=== PATIENT | female | born 1990 | race American Indian/Alaskan Native ===

== ENCOUNTER 2021-02-04 13:01 | Emergency (ER) | payer MEDICAID ==
--- NOTE | 2021-02-04 13:16 | Event Note ---
ED Screening Note Date of service: 02/04/21 Time: 13:14 ED Screening Note: 30 year old female patient (; LMP 01/22/21) presents to the emergency department with complaints of lower abdominal pain and vaginal bleeding starting yesterday. Patient describes the pain in her abdomen as "crampy," localized to the right lower quadrant. Patient describes the bleeding as "spotting." She has bled through less than 1 pad/tampon in the last 24 hours. 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 General: Awake, appropriately interactive, no acute distress. Neck: Supple. Full range of motion intact. Cardiovascular: Normal peripheral perfusion. Pulmonary: No respiratory distress. Patient is speaking normally without use of accessory muscles. Skin: No apparent rashes or lesions. Neurological: No facial asymmetry. Speech is clear. Follows commands. Patient is alert and oriented. Musculoskeletal: Moves all four extremities spontaneously with normal range of motion. Psych: Cooperative. Appropriate mood and affect. Labs and urinalysis ordered; decision to obtain imaging deferred to additional ED providers following full history and comprehensive physical assessment. I have greeted and performed a focused rapid initial assessment of this patient. A comprehensive ED assessment and evaluation of the patient, analysis of all test results, and completion of the medical decision-making process will be conducted by additional ED providers. This initial assessment/diagnostic orders/clinical plan/treatment(s) is/are subject to change based on patients health status, clinical progression and re-assessment. Further treatment and workup at subsequent clinical provider's discretion. Patient/guardian urged not to elope from the ED as their condition may be serious if not clinically assessed and managed.
[2021-02-04 13:41] LABS: Bacteria,Urine 1+ /HPF (Negative); Bilirubin,Urine NEG (Negative); Blood,Urine MOD (Negative); Color,Urine Yellow (Yellow); Mucus,Urine FEW /HPF; Protein,Urine <15 mg/dL mg/dL (Negative); Urobilinogen,Urine < 2.0 mg/dL (<2.0)
[2021-02-04] MEDS ORDERED: SODIUM CHLORIDE 0.9% 1000 ML 1,000 ML IV ONE (14:48)
[2021-02-04 15:11] LABS: Basophils % (Auto) 0.5 % (0.0-1.8); Eosinophils % (Auto) 1.1 % (0.0-4.3); Hematocrit 36.4 % (30.3-42.9); Hemoglobin 12.3 gm/dl (10.1-14.3); Lymphocytes # (Auto) 1.5 K/mm3 (1.2-5.4); Mean Corpuscular HGB Conc 34 % (30-34); Mean Corpuscular Volume 100 fl (79-97); Monocytes # (Auto) 0.3 K/mm3 (0.0-0.8); Monocytes % (Auto) 7.7 % (0.0-7.3); Platelet Count 298 K/mm3 (140-440); Red Blood Count 3.66 M/mm3 (3.65-5.03); Red Cell Distribution Width 12.2 % (13.2-15.2)
[2021-02-04 15:23] LABS: Blood Urea Nitrogen 15 mg/dL (7-17); Calcium 10.1 mg/dL (8.4-10.2); Hemolysis Index 6
[2021-02-04 15:32] LABS: BUN/Creatinine Ratio 21
--- NOTE | 2021-02-04 15:34 | Emergency Department Report ---
ED Female HPI - General Chief complaint: Vaginal Bleeding Stated complaint: , VAGINAL BLEEDING, CRAMPING Time Seen by Provider: 02/04/21 14:53 Source: patient Mode of arrival: Ambulatory Limitations: No Limitations - History of Present Illness Initial comments: Patient is a pleasant 30-year-old female that comes to the emergency room complaining of vaginal bleeding during . Her last menstrual was 6 8. She states that she did a test that was positive at home. This was a #4 and she has 1 living child. She states that she has had 2 other incidents where she had positive test but then they could ne tang find anything in the uterus and the hormone fell. Patient denies any dysuria or vaginal discharge. She denies any abdominal pain or back pain. Patient is ambulatory nontoxic and [id number] in the ER. - Related Data Previous Rx's Medication Instructions Recorded Last Taken Type cephALEXin [Keflex] 500 mg PO Q12HR #20 cap 02/04/21 Unknown Rx Allergies Allergy/AdvReac Type Severity Reaction Status Date / Time No Known Allergies Allergy Unverified 02/04/21 15:16 ED Review of Systems ROS: Stated complaint: , VAGINAL BLEEDING, CRAMPING Other details as noted in HPI Comment: All other systems reviewed and negative ED Past Medical Hx - Past Medical History Previous Medical History?: No - Surgical History Past Surgical History?: Yes Additional Surgical History: C SECTION - Family History Family history: no significant - Social History Smoking Status: Never Smoker Substance Use Type: None - Medications Home Medications: Home Medications Medication Instructions Recorded Confirmed Last Taken Type cephALEXin [Keflex] 500 mg PO Q12HR #20 cap 02/04/21 Unknown Rx ED Physical Exam - General Limitations: No Limitations General appearance: alert, in no apparent distress - Head Head exam: Present: atraumatic, normocephalic - Eye Eye exam: Present: normal appearance - ENT ENT exam: Present: mucous membranes moist - Neck Neck exam: Present: normal inspection - Respiratory Respiratory exam: Present: normal lung sounds bilaterally. Absent: respiratory distress - Cardiovascular Cardiovascular Exam: Present: regular rate, normal rhythm. Absent: systolic murmur, diastolic murmur, rubs, gallop - GI/Abdominal GI/Abdominal exam: Present: soft, normal bowel sounds - Extremities Exam Extremities exam: Present: normal inspection - Back Exam Back exam: Present: normal inspection - Neurological Exam Neurological exam: Present: alert, oriented X3 - Psychiatric Psychiatric exam: Present: normal affect, normal mood - Skin Skin exam: Present: warm, dry, intact, normal color. Absent: rash ED Course Vital Signs 02/04/21 02/04/21 13:10 15:13 Temperature 98.5 F Pulse Rate 77 Respiratory 20 Rate Blood Pressure 145/101 O2 Sat by Pulse 98 98 Oximetry ED Medical Decision Making - Lab Data Result diagrams: 02/04/21 14:46 02/04/21 14:49 - Radiology Data Radiology results: report reviewed, image reviewed See report - Medical Decision Making Lab Results 02/04/21 02/04/21 02/04/21 Range/Units 14:46 14:46 14:49 WBC 4.5 (4.5-11.0) K/mm3 RBC 3.66 (3.65-5.03) M/mm3 Hgb 12.3 (10.1-14.3) gm/dl Hct 36.4 (30.3-42.9) % MCV 100 H (79-97) fl MCH 34 H (28-32) pg MCHC 34 (30-34) % RDW 12.2 L (13.2-15.2) % Plt Count 298 (140-440) K/mm3 Lymph % (Auto) 33.0 (13.4-35.0) % [place] % (Auto) 7.7 H (0.0-7.3) % Eos % (Auto) 1.1 (0.0-4.3) % Baso % (Auto) 0.5 (0.0-1.8) % Lymph # (Auto) 1.5 (1.2-5.4) K/mm3 [place] # (Auto) 0.3 (0.0-0.8) K/mm3 Eos # (Auto) 0.0 (0.0-0.4) K/mm3 Baso # (Auto) 0.0 (0.0-0.1) K/mm3 Seg Neutrophils % 57.7 (40.0-70.0) % Seg Neutrophils # 2.6 (1.8-7.7) K/mm3 Sodium 139 (137-145) mmol/L Potassium 4.4 (3.6-5.0) mmol/L Chloride 101.0 (98-107) mmol/L Carbon Dioxide 28 (22-30) mmol/L Anion Gap 14 mmol/L BUN 15 (7-17) mg/dL Creatinine 0.7 (0.6-1.2) mg/dL Estimated GFR > 60 ml/min BUN/Creatinine Ratio 21 % Glucose 86 (65-100) mg/dL Calcium 10.1 (8.4-10.2) mg/dL HCG, Quant 262.0 H (0-4) mIU/mL Urine Color (Yellow) Urine Turbidity (Clear) Urine pH (5.0-7.0) Ur Specific [place] (1.003-1.030) Urine Protein (Negative) mg/dL Urine Glucose (UA) (Negative) mg/dL Urine Ketones (Negative) mg/dL Urine Blood (Negative) Urine Nitrite (Negative) Urine Bilirubin (Negative) Urine Urobilinogen (<2.0) mg/dL Ur Leukocyte Esterase (Negative) Urine WBC (Auto) (0.0-6.0) /HPF Urine RBC (Auto) (0.0-6.0) /HPF U Epithel Cells (Auto) (0-13.0) /HPF Urine Bacteria (Auto) (Negative) /HPF Urine Mucus /HPF 02/04/ Range/Units Unknown WBC (4.5-11.0) K/mm3 RBC (3.65-5.03) M/mm3 Hgb (10.1-14.3) gm/dl Hct (30.3-42.9) % MCV (79-97) fl MCH (28-32) pg MCHC (30-34) % RDW (13.2-15.2) % Plt Count (140-440) K/mm3 Lymph % (Auto) (13.4-35.0) % [place] % (Auto) (0.0-7.3) % Eos % (Auto) (0.0-4.3) % Baso % (Auto) (0.0-1.8) % Lymph # (Auto) (1.2-5.4) K/mm3 [place] # (Auto) (0.0-0.8) K/mm3 Eos # (Auto) (0.0-0.4) K/mm3 Baso # (Auto) (0.0-0.1) K/mm3 Seg Neutrophils % (40.0-70.0) % Seg Neutrophils # (1.8-7.7) K/mm3 Sodium (137-145) mmol/L Potassium (3.6-5.0) mmol/L Chloride (98-107) mmol/L Carbon Dioxide (22-30) mmol/L Anion Gap mmol/L BUN (7-17) mg/dL Creatinine (0.6-1.2) mg/dL Estimated GFR ml/min BUN/Creatinine Ratio % Glucose (65-100) mg/dL Calcium (8.4-10.2) mg/dL HCG, Quant (0-4) mIU/mL Urine Color Yellow (Yellow) Urine Turbidity Clear (Clear) Urine pH 5.0 (5.0-7.0) Ur Specific [place] 1.015 (1.003-1.030) Urine Protein <15 mg/dl (Negative) mg/dL Urine Glucose (UA) Neg (Negative) mg/dL Urine Ketones Neg (Negative) mg/dL Urine Blood Mod (Negative) Urine Nitrite Pos (Negative) Urine Bilirubin Neg (Negative) Urine Urobilinogen < 2.0 (<2.0) mg/dL Ur Leukocyte Esterase Neg (Negative) Urine WBC (Auto) 2.0 (0.0-6.0) /HPF Urine RBC (Auto) 1.0 (0.0-6.0) /HPF U Epithel Cells (Auto) 2.0 (0-13.0) /HPF Urine Bacteria (Auto) 1+ (Negative) /HPF Urine Mucus Few /HPF Vital Signs 02/04/21 02/04/21 13:10 15:13 Temperature 98.5 F Pulse Rate 77 Respiratory 20 Rate Blood Pressure 145/101 O2 Sat by Pulse 98 98 Oximetry LABS NOTED UA NOTED ROCEPHIN IV NS 1L IV US noted I had a discussion with the patient regarding her hCG level and no evidence of IUP on ultrasound. As noted this is not new to the patient. She understands that she needs to follow-up with [facility] in 48 hours for recheck. Patient being discharged home on Keflex for her UTI. Cultures are pending we need to call her if they are not sensitive to the Keflex. Patient's blood pressure noted to be elevated on arrival to the ER. She states that she does not have known hypertension. Patient is not overweight. She is seemingly otherwise in good health. I have instructed her to monitor her blood pressure to be sure this is just reading high because she is upset or not feeling well. Patient verbalizes understanding. Patient being discharged home with discharge plan of care. She verbalizes understanding of plan. On discharge patient ambulatory, nonill nontoxic appearing and afebrile - Differential Diagnosis RO PREG/UTI/ECTOPIC Critical care attestation.: If time is entered above; I have spent that time in minutes in the direct care of this critically ill patient, excluding procedure time. ED Disposition Clinical Impression: UTI (urinary tract infection), Vaginal bleeding during Disposition: TO HOME OR SELFCARE Is pt being admited?: No Does the pt Need Aspirin: No Condition: Stable Instructions: Threatened Miscarriage, Urinary Tract Infection, Adult Additional Instructions: FOLLOW UP WITH OBGYN IN 48 HOURS FOR RECHECK REFERRAL BELOW TYLENOL FOR PAIN MED ORDERED TODAY FOR UTI TAKE UNTIL [place] STAY WELL HYDRATED WITH WATER Prescriptions: cephALEXin [Keflex] 500 mg PO Q12HR #20 cap Referrals: CURT FROST MD [Staff Physician] - 3-5 Days Time of Disposition: 15:34
[2021-02-04] MEDS ORDERED: cefTRIAXone/NS 1 GM/50 ML 1 GM/50 ML BAG IV ONE (16:00)
--- NOTE | 2021-02-04 17:04 | Ultrasound Report ---
ULTRASOUND OBSTETRIC INDICATION / CLINICAL INFORMATION: VAG BLEED POS PREG. TECHNIQUE: Transabdominal and Transvaginal. COMPARISON: None available. FINDINGS: No IUP visualized. ADNEXA: Right ovary within normal limits 2.4cm left ovarial follicular cyst. FREE FLUID: None. ADDITIONAL FINDINGS: None. IMPRESSION: 1. No IUP. Recommend follow-up beta-hCG and ultrasound Signer Name: Wallace Bryant MD Signed: 02/04/2021 4:59 PM Workstation Name: [id number]
[2021-02-04 17:41] VITALS: BP 118/77
== END 2021-02-04 17:37 | disposition home or self-care (01) ==
LOC: ED 13:01
DX: O23.41 Unspecified infection of urinary tract in pregnancy, first trimester (principal); O20.8 Other hemorrhage in early pregnancy; Z3A.00 Weeks of gestation of pregnancy not specified; Z98.890 Other specified postprocedural states; Z79.899 Other long term (current) drug therapy
CPT/HCPCS: 36415; 76801; 76817; 80048; 81001; 84702; 85025; 86900; 86901; 87086; 87186; 96361; 96365; 99284; J0696; J7030